=== PATIENT | male | born 1965 | race Caucasian/White ===

== ENCOUNTER 2018-01-22 12:00 | Emergency (ER) | payer BC ==
[2018-01-22] MEDS: HYDROCODONE/APAP (5/325) TAB PO (12:51)
== END 2018-01-22 14:33 | disposition home or self-care (01) ==
LOC: FTE 12:00
DX: R07.89 Other chest pain (principal); M54.2 Cervicalgia; M54.9 Dorsalgia, unspecified; F17.210 Nicotine dependence, cigarettes, uncomplicated
CPT/HCPCS: 71045; 72040; 93005; 99284-25